=== PATIENT | female | born 1965 | race Two or more races ===

== ENCOUNTER → 2024-09-13 | Emergency (ER) | payer OTHER ==
[~2024-09-13] VITALS: Ht 167.6 cm; Wt 108.4 kg
[~2024-09-13] MED LIST: ATORVASTATIN CA10 MG PO; METFORMIN HCL1000 M2 PO; TRAMADOL HCL 50 MG TABLET PO STA
== END | disposition home or self-care (01) ==
LOC: ER 16:56
DX: M25.512 Pain in left shoulder (principal); W22.8XXA Striking against or struck by other objects, initial encounter; Y93.89 Activity, other specified; Y92.89 Other specified places as the place of occurrence of the external cause; Z88.0 Allergy status to penicillin